=== PATIENT | male | born 1975 | race Caucasian/White ===

== ENCOUNTER 2021-12-01 15:56 | Emergency (ER) | payer SELFPAY ==
[2021-12-01 16:29] VITALS: BP 128/80; PULSE 77; RESP 18; TEMP 36.8; O2SAT 100
--- NOTE | 2021-12-01 17:48 | ED.GENADUL_ITS ---
Discharge Plan Disposition Patient Disposition: HOME Condition: Improving Discharge Details Clinical Impression: Sciatica Primary Care Provider: None,None ED Provider: Marco Velasquez Home Meds and New Rx's Prescriptions: New cyclobenzaprine 10 mg tablet 10 mg PO HS PRN (Reason: muscle spasm) Qty: 7 0RF lidocaine [Lidoderm] 5 % adhesive patch,medicated 1 patch topical DAILY PRNQty: 15 0RF Rx Instructions: leave on most painful area for up to 12 hrs No Action prednisone 20 mg tablet See Rx Instructions PO DAILY Qty: 11 0RF Rx Instructions: 2 tabs 3 days; 1 tab 3 days; 0.5 tabs 4 days PO daily; Discharge Instructions Instructions: Sciatica (ED) Additional Instructions: Please follow-up with your primary care physician. Please return to the emergency department for any worsening symptoms. Medical Decision Making 46-year-old male presents with left lower extremity discomfort radiating from his lower back through his buttocks into his leg over the past couple of days in the setting of lifting heavy material at work. No bowel or bladder incontinence, no trauma, afebrile nontoxic no midline spinal tenderness. High clinical suspicion for sciatica. Was also consider muscle spasm. Low suspicion for cauda equina spinal epidural abscess mass or infection. Trial of medications likely home with close follow-up and strict return precautions. 19: 02 patient resting comfortably no acute distress. Given home care instructions and return precautions. Likely sciatica. HPI General Date/Time Provider Initiated Documentation: 12/01/21 17:39 . HPI Narrative: 46-year-old male presents with left lower leg discomfort rating from his back into his buttock in the setting of lifting heavy material at work over the past couple of days, denies bowel or bladder incontinence denies trauma. No fevers or chills or infectious symptoms. Related Data Home Medications Medication Instructions Recorded Confirmed prednisone 20 mg tablet See Rx Instructions PO DAILY #11 03/22/21 03/22/21 tabs cyclobenzaprine 10 mg tablet 10 mg PO HS PRN muscle spasm #7 12/01/21 tabs lidocaine 5 % topical patch 1 patch topical DAILY PRN #15 ea 12/01/21 (Lidoderm) Previous Rx's Medication Instructions Recorded prednisone 20 mg tablet See Rx Instructions PO DAILY #11 03/22/21 tabs cyclobenzaprine 10 mg tablet 10 mg PO HS PRN muscle spasm #7 12/01/21 tabs lidocaine 5 % topical patch 1 patch topical DAILY PRN #15 ea 12/01/21 (Lidoderm) Allergies Allergy/AdvReac Type Severity Reaction Status Date / Time No Known Allergies Allergy Verified 03/22/21 10:05 General Stated Complaint: Nk/Back Pain MARY GRACE: 4 Review of Systems Narrative: Review of Systems Constitutional: negative Eyes: negative ENT: negative Cardiovascular: negative Respiratory: negative Gastrointestinal: negative : negative Musculoskeletal: back pain Skin: negative Neurologic: negative Psych: negative PFSH All Active Problems (Updated 12/01/21 @ 19:03 by Marco Velasquez MD) Sciatica (Acute) Social History Smoking/Tobacco Use Status: Never Smoking risk assessment performed?: Yes Alcohol Intake: never Substance use type: does not use Do you feel safe at home: Yes Do you feel safe in your relationship?: Yes Exam Narrative Exam Narrative: Physical Examination General: alert, awake, cooperative, resting comfortably, no acute distress HEENT: normocephalic, atraumatic; PERRL, EOM intact, conjunctiva normal; no nasal discharge; moist mucous membranes, oral and pharyngeal mucosa normal, tolerating secretions Neck: supple, trachea midline; full ROM Chest: normal to inspection Respiratory: normal respiratory effort, speaking in full sentences, clear to auscultation, no wheezing, rales or rhonchi Cardiac: regular rate, regular rhythm, S1S2 intact, no murmurs rubs or gallops GI: abdomen soft, non-tender, non-distended; no palpable mass or hepatosplenomegaly Back: No midline spinal tenderness Skin: no lesions, rashes or trauma appreciated Neuro: AAOx3, normal speech, moving all extremities; 5 out of 5 strength upper and lower extremities, ambulatory without assistance Extremities: No signs of trauma Psych: Appropriate mood and affect Course Vital Signs Vital signs: Vital Signs Temperature 36.8 C 12/01/21 16:29 Pulse 77 12/01/21 16:29 Respiratory Rate 18 12/01/21 16:29 Blood Pressure 128/80 12/01/21 16:29 Pulse Oximetry 100 12/01/21 16:29 Temperature 36.8 C 12/01/21 16:29 Temperature Source Temporal Artery Scan 12/01/21 16:29 Pulse 77 1007/22 16:29 Respiratory Rate 18 12/01/21 16:29 Respiratory Effort Non-Labored 12/01/21 16:32 Blood Pressure 128/80 12/01/21 16:29 Blood Pressure Position Sitting 12/01/21 16:29 Pulse Oximetry 100 12/01/21 16:29 Oxygen Delivery Method Room Air 12/01/21 16:29 Oxygen Flow Rate 0 12/01/21 16:29 Pain Level 12/01/21 17:33
[2021-12-01] MEDS: Cyclobenzaprine 10 MG TAB PO (18:23)
[2021-12-01] MEDS: LORazepam 0.5 MG TAB PO (18:23)
[2021-12-01] MEDS: Dexamethasone 10 MG/ML VIAL IVP (18:23)
[2021-12-01] MEDS: Ketorolac 15 MG/ML VIAL IM (18:24)
[2021-12-01] MEDS: Lidocaine 5% Patch 1 PATCH TP (18:45)
[2021-12-01 19:15] VITALS: BP 115/62; PULSE 72; RESP 17; TEMP 36.5; O2SAT 97
== END 2021-12-01 19:23 | disposition home or self-care (01) ==
PROVIDERS: Emergency Provider Emergency Medicine
DX: M54.32 Sciatica, left side (principal)
CPT/HCPCS: 96372; 96374; 99284; J1100; J1885

== ENCOUNTER 2022-07-24 04:18 | Outpatient (CLI) | payer OTHER, SELFPAY ==
[2022-07-24 12:44] LABS: ALT 32 U/L (16-63); AST 20 U/L (15-37); Alkaline Phosphatase 78 U/L (46-116); Anion Gap 9.1 mmol/L (3-11); BUN 13 mg/dL (7-18); Bilirubin, Total 0.4 mg/dL (0.2-1.0); CO2 26.9 mmol/L (21.0-32.0); Calcium 8.9 mg/dL (8.5-10.1); Calculated LDL 98 mg/dL (<100); Chloride 105 mmol/L (98-107); Cholesterol 163 mg/dL (<200); Estimated GFR 93.42 (mL/min/1.73m2); Glucose 125 mg/dL (74-106); HDL Cholesterol 48 mg/dL (40-60); Potassium 3.1 mmol/L (3.5-5.1); Sodium 141 mmol/L (136-145); TSH (W/Ref FT4) 0.87 uIU/mL (0.36-3.74); Total Protein 7.5 g/dL (6.4-8.2); Triglyceride 85 mg/dL (<150)
[2022-07-24 13:32] LABS: Hemoglobin A1C 5.2 % (<5.7)
== END 2022-07-24 04:19 | disposition home or self-care (01) ==
LOC: LOS 04:18
PROVIDERS: PCP Nurse Practitioner Family; Visit Provider Nurse Practitioner Family
DX: Z00.00 Encounter for general adult medical examination without abnormal findings (principal); Z13.220 Encounter for screening for lipoid disorders; Z13.1 Encounter for screening for diabetes mellitus; Z13.29 Encounter for screening for other suspected endocrine disorder
CPT/HCPCS: 36415; 80053; 80061; 83036; 84443

== ENCOUNTER 2022-10-03 11:13 | Emergency (ER) | payer OTHER, SELFPAY ==
[2022-10-03] VITALS (19 sets, daily range): BP systolic 114–131; BP diastolic 68–78; PULSE 47–68; RESP 9–22; TEMP 36.6; O2SAT 96–100
--- NOTE | 2022-10-03 11:34 | DI.CT_ITS ---
Exam(s) CT HEAD CERV SPINE FACIAL WO EXAM: CT HEAD CERV SPINE FACIAL WO CLINICAL HISTORY: Facial Trauma, LOC. TECHNIQUE: Imaging Protocol: Axial computed tomography images with coronal and sagittal reformatted images were created and reviewed COMPARISON: No exams were available for comparison FINDINGS: CT Head: Ventricles and Extra axial spaces: Normal in size and morphology for the patient's age. Hemorrhage: None. Cerebral parenchyma: Normal. Midline shift: None. Brainstem/Cerebellum: Normal. Calvarium: Normal. Visualized Paranasal sinuses/Mastoids: Clear. Soft Tissues: Unremarkable. CT Face: Facial Bones: No fracture is noted in facial bones. Sinuses and Mastoids: Tiny bilateral maxillary sinus retention cysts. Globes, extraocular muscles, optic nerves and retrobulbar fat: Normal. Upper aerodigestive tract: Normal. Mandible and bilateral temporomandibular joints: Normal. Soft tissues: Normal. CT cervical spine: No evidence of fracture. Alignment normal. Degenerative changes at C1-2. Degenerative disc changes with endplate osteophytes at C5-6 and C6-7. IMPRESSION: 1. No acute intracranial process. 2. No acute facial fracture. 3. Degenerative changes in the cervical spine. No evidence fracture or subluxation. RADIATION DOSE DELIVERED: 1,780.49mGy.cm Total DLP DATA REPOSITORY: All CT scans at this facility are submitted to the National Radiology Data Registry (NRDR) Dose Index Registry (DIR) with the [employer] (ACR). RADIATION OPTIMIZATION: All CT scans at this facility use at least one of these dose optimization te chniques: automated exposure control; mA and/or kV adjustment per patient size (includes targeted exa ms where dose is matched to clinical indication); or iterative reconstruction.
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
[2022-10-03] MEDS: Lidocaine 4% Cream 5 GM TUBE 2.5 GM TP (11:51)
[2022-10-03] MEDS: Acetaminophen 500 MG TAB 1000 MG PO (11:59)
== END 2022-10-03 14:11 | disposition home or self-care (01) ==
PROVIDERS: Emergency Provider Registered Nurse Emergency; PCP Nurse Practitioner Family
DX: S09.93XA Unspecified injury of face, initial encounter (principal); S06.0X1A Concussion with loss of consciousness of 30 minutes or less, initial encounter; S01.511A Laceration without foreign body of lip, initial encounter; W20.8XXA Other cause of strike by thrown, projected or falling object, initial encounter
CPT/HCPCS: 12051; 90471; 99284; 70450; 70486; 72125

== ENCOUNTER 2023-08-21 15:45 | Emergency (ER) | payer OTHER, SELFPAY ==
[2023-08-21] VITALS (12 sets, daily range): BP systolic 112–127; BP diastolic 76–87; PULSE 47–69; RESP 12–24; TEMP 35.9–36.9; O2SAT 99
--- NOTE | 2023-08-21 16:00 | RT.EKG_ITS ---
APPROVED REPORT Exam: Resting ECG Reason for Exam: hypokalemia Patient Location: E HR:70 bpm ECG Measurements Heart Rate 70 AXIS IN 167 P 52 QRSd 112 QRS 56 QT 392 T 29 QTc 424 Conclusion Sinus rhythm...normal P axis, V-rate 60- 99 Incomplete right bundle branch block...QRSd >112, terminal axis(90,270) ST elev, probable normal early repol pattern...ST elevation, age<55 sinus rhythm normal axis, normal intervals, non ischemic
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
[2023-08-21 16:24] LABS: Abs Immature Grans 0.02 10^3/uL (0.0-0.06); Absolute Basophil Count 0.05 10^3/uL (0.0-0.2); Absolute Eosinophil Count 0.13 10^3/uL (0.0-0.7); Absolute Lymphocyte Count 1.88 10^3/uL (1.2-3.4); Absolute Monocyte Count 0.55 10^3/uL (0.1-0.8); Absolute Neutrophil Count 4.92 10^3/uL (1.2-6.7); Basophils % 0.7 %; Eosinophils % 1.7 %; HCT 45.3 % (40.0-50.0); HGB 15.5 g/dL (13.5-17.5); Immature Grans % 0.3 %; Lymphocytes % 24.9 %; MCH 29.6 pg (27.0-33.0); MCHC 34.2 % (32.0-36.0); MCV 87 fL (80-95); MPV 9.6 fL (8.0-11.0); Monocytes % 7.3 %; Neutrophils % 65.1 %; Platelet Count 225 10^3/uL (130-400); RBC 5.23 10^6/uL (4.36-5.78); RDW 12.9 % (11.8-14.1); RDW-SD 40.4 fL; WBC 7.55 10^3/uL (4.4-10.8)
--- NOTE | 2023-08-21 16:24 | NUR.NOTE ---
Nursing Note: approx 1 min after IV insertion patient became diaphoretic, nauseous, dazed, HR down to 52 then up to 114. Episode lasted approx 30second. Patient ate a few ice chips, cold wash cloth applied to forhead, HR 64 at this time, says he feels better
[2023-08-21] MEDS: Normal Saline 1,000 ML 1000 ML IV (16:50)
[2023-08-21 16:52] LABS: ALT 24 U/L (16-63); AST 17 U/L (15-37); Albumin 4.2 g/dL (3.4-5.0); Alkaline Phosphatase 75 U/L (46-116); Anion Gap 9.9 mmol/L (3-11); BUN 16 mg/dL (7-18); Bilirubin, Total 0.74 mg/dL (0.2-1.0); CO2 28.1 mmol/L (21.0-32.0); CREATININE 1.1 mg/dL (0.70-1.30); Calcium 9.2 mg/dL (8.5-10.1); Chloride 104 mmol/L (98-107); Estimated GFR 82.81 (mL/min/1.73m2); Glucose 100 mg/dL (74-106); Magnesium 1.9 mg/dL (1.8-2.4); Potassium 3.4 mmol/L (3.5-5.1); Sodium 142 mmol/L (136-145); TSH (W/Ref FT4) 0.64 uIU/mL (0.36-3.74); Total Protein 7.7 g/dL (6.4-8.2)
[2023-08-21] MEDS: Potassium Chloride 10 MEQ TABCR PO (17:15)
== END 2023-08-21 17:44 | disposition home or self-care (01) ==
PROVIDERS: Emergency Provider Emergency Medicine; PCP Nurse Practitioner Family
DX: E87.6 Hypokalemia (principal); R52 Pain, unspecified; R14.0 Abdominal distension (gaseous); R53.1 Weakness
CPT/HCPCS: 36415; 80053; 93005; 96360; 99284; 83735; 84443; 85025; 93010; 99283

== ENCOUNTER 2023-09-09 03:48 | Outpatient (CLI) | payer OTHER, SELFPAY ==
[2023-09-09 13:38] LABS: Potassium 3.6 mmol/L (3.5-5.1)
[2023-09-10 09:29] LABS: Hepatitis C Ab w Rflx HCV PCR Negative (Negative)
[2023-09-10 10:09] LABS: HIV-1/2 Ag & Ab Screen Negative (Negative)
[2023-09-10 10:24] LABS: HBs Antibody, Quant <3.1 mIU/mL (See Note); Hep B Surface Ab Negative (See Note); Hepatitis B Core Antibody Negative (Negative); Hepatitis B Surface Antigen Negative (Negative)
== END 2023-09-09 03:49 | disposition home or self-care (01) ==
PROVIDERS: Nurse Practitioner Family; PCP Nurse Practitioner Family; Visit Provider Nurse Practitioner Family
DX: Z11.4 Encounter for screening for human immunodeficiency virus [HIV] (principal); Z11.59 Encounter for screening for other viral diseases; E87.6 Hypokalemia
CPT/HCPCS: 36415; 86704; 86706; 86803; 87340; 87389; 84132